=== PATIENT | male | born 1970 | race Caucasian/White ===

== ENCOUNTER 2025-03-06 07:43 | Outpatient (CLI) | payer BC, SELFPAY ==
--- NOTE | 2025-03-06 08:00 | CRLHL7_ITS ---
For Patients: As a result of the Century Cures Act, medical imaging exams and procedure reports are released immediately into your electronic medical record. You may view this report before your referring provider. If you have questions, please contact your health care provider. INDICATION: Chronic sinusitis. TECHNIQUE: High-resolution CT images of the paranasal sinuses were obtained without contrast. FINDINGS: Frontal: There is mild mucosal thickening in the inferior portions of the frontal air cells and inferior frontal recesses bilaterally. Ethmoid: 2 mm or less mucosal thickening in the bilateral anterior ethmoid air cells. Sphenoid: There is localized mild to moderate mucosal thickening in the anterior inferior sphenoid air cells and partially narrows the sphenoid ethmoidal recesses. Maxillary: There is prominent frothy dependent mucus in the left maxillary antrum approximately 1/3 filled 4 mm or less mucosal thickening in the right maxillary antrum. Mucosal narrowing of the of the bilateral maxillary ostiomeatal units are there are patent accessory ostia or small maxillary antrostomies. Nasal fossa: Mild S shaped nasal septal curvature. There is a annita bullosa of the left middle nasal turbinate. The small bilateral nasal polyps. Nasopharynx unremarkable. Mastoid air cells are grossly clear. IMPRESSION: 1. Inflammatory changes in all paranasal sinuses as described. 2. Findings most prominent in the left maxillary antrum which is approximately 1/3 filled with dependent frothy mucous. 3. Mild mucosal narrowing of the bilateral ostiomeatal units. 4. Nasal septal curvature and leftward directed septal spur. Small bilateral nasal polyps. Please note that all CT scans at this facility use dose modulation, iterative reconstruction, and/or weight-based dosing when appropriate to reduce radiation dose to as low as reasonably achievable. Dictated by Albert Lutz MD @ 03/07/2025 9:32:59 AM (Electronically Signed)
== END 2025-03-06 07:44 | disposition home or self-care (01) ==
LOC: CT 07:45
PROVIDERS: PCP Family Medicine; Visit Provider Otolaryngology
DX: J32.9 Chronic sinusitis, unspecified (principal); J32.0 Chronic maxillary sinusitis; J34.2 Deviated nasal septum; J33.9 Nasal polyp, unspecified
CPT/HCPCS: 70486

== ENCOUNTER 2025-04-04 13:45 | Outpatient (CLI) | payer BC, SELFPAY ==
--- NOTE | 2025-05-07 12:29 | W.PM.SLEEP ---
Sleep Study Details Details Interpreting Provider: Rosette Date of Sleep Study: 04/04/25 Sleep Study Details: STUDY TYPE:? Home unattended ? BMI:? 29.53 ORDERING PROVIDER:? Rosette INDICATION:? Concern for sleep apnea ? SLEEP SUMMARY:? 500 minutes monitored RESPIRATORY SUMMARY:? AHI 14.9, low oxygen 77 3.4% of study oxygen less than 90% Snoring 0% PERIODIC LIMB MOVEMENTS OF SLEEP:? Not recorded CARDIAC:? Range 48-96, mean 69.2 beats per minute IMPRESSION:? Mild almost moderate obstructive sleep apnea RECOMMENDATION: Treatment options include CPAP, dental appliance and/or airway expansion surgery.
== END 2025-04-04 13:46 | disposition home or self-care (01) ==
LOC: SLEEP 13:45
PROVIDERS: PCP Family Medicine; Visit Provider Otolaryngology
DX: G47.33 Obstructive sleep apnea (adult) (pediatric) (principal)
CPT/HCPCS: 95806